=== PATIENT | female | born 1990 | race Caucasian/White ===

== ENCOUNTER 2016-06-01 23:52 | Observation (INO) | payer MEDICAID ==
[~2016-06-01] VITALS: Ht 160 cm; Wt 68.9 kg
[2016-06-02] MEDS ORDERED: LACTATED RINGERS 1,000 ML IV SCH (01:15)
[2016-06-02] MEDS ORDERED: IRON-1 PO (04:14)
[2016-06-02] MEDS ORDERED: PREN-88 PO (04:14)
== END 2016-06-02 04:40 | disposition home or self-care (01) ==
LOC: L&D 23:52 → EDBD 23:52
PROVIDERS: ADMIT Specialist; ATTEND Specialist
DX: Z34.90 Encounter for supervision of normal pregnancy, unspecified, unspecified trimester (principal)
CPT/HCPCS: 76815; 76818; 96360; 96361; G0378; J7120